=== PATIENT | male | born 1945 | race Caucasian/White ===

== ENCOUNTER 2018-08-30 20:16 | Emergency (ER) | payer BC | END 2018-08-30 23:45 | disposition home or self-care (01) | LOC: E/R 23:45 → FTE 20:16 | DX: M79.18 Myalgia, other site (principal); E11.9 Type 2 diabetes mellitus without complications; Z79.84 Long term (current) use of oral hypoglycemic drugs | CPT/HCPCS: 93971; 99284-25 ==